=== PATIENT | female | born 1960 | race Caucasian/White ===

== ENCOUNTER → 2017-08-12 | Outpatient (CLI) | payer BC ==
[~2017-08-12] MED LIST: ACTOS 30 MG TAB30 MG PO; AMOXICILLI400 MG/5 M PO; ASPIR 8181 MG PO; COREG3.125 MG PO; CRESTOR10 MG PO; CRESTOR40 MG PO; EFFIENT10 MG PO; GLUCOPHAGE1000 MG PO; LANTUSSOLASTAR SQ; LEVEMIR SUBQ; LEVOTHYROXIN0.025 MG PO; LEVOTHYROXINE0.2 M1 PO; MOBIC15 MG PO; Magic Mouthwash PO; NAPROSYN500 MG PO; NITROSTAT0.4 MG SUBLING; NOVOLOG FL100 UNIT/M SC; PRILOSEC40 MG PO; PROMETHAZINE-C120 ML PO; PROTONIX40 M2 PO; ZESTRIL2.5 MG PO; ZOCOR80 MG PO
== END ==
LOC: M.ULTRA 15:04
DX: I65.23 Occlusion and stenosis of bilateral carotid arteries (principal)

== ENCOUNTER → 2017-10-03 | Outpatient (CLI) | payer BC | LOC: M.CT 07:31 | DX: R10.13 Epigastric pain (principal); R11.2 Nausea with vomiting, unspecified ==

== ENCOUNTER 2018-06-22 04:46 | Emergency (ER) | payer BC ==
[~2018-06-22] VITALS: Ht 170.2 cm; Wt 65.3 kg
[2018-06-22 05:04] LABS: ABSOLUTE BASOPHILS 0.1 thou/uL (0.0-0.2); ABSOLUTE EOSINOPHILS 0.2 thou/uL (0.0-0.7); ABSOLUTE LYMPHOCYTES 2.2 thou/uL (0.8-5.3); ABSOLUTE MONOCYTES 0.8 thou/uL (0.0-1.2); ABSOLUTE NEUTROPHILS 5.9 thou/uL (1.6-8.1); BASOPHILS 1.1 %; EOSINOPHILS 2.3 %; HEMATOCRIT 43.1 % (37.0-47.0); HEMOGLOBIN 14.5 gm/dL (12.0-15.0); LYMPHOCYTES 24.1 %; MCH 28.1 pg (26.0-34.0); MCHC 33.6 g/dL (28.0-37.0); MCV 83.6 fL (80.0-100.0); MONOCYTES 8.7 %; MPV 9.4 fl. (7.2-11.1); NUCLEATED RBCS 0 /100WBC; PLATELET COUNT* 272 thou/uL (150-400); POLYS 63.8 %; RBC 5.15 mil/uL (4.20-5.00); RDW-CV 13.1 % (10.5-14.5); WBC 9.2 thou/uL (4.0-11.0)
[2018-06-22 05:19] LABS: ANION GAP 9 mmol/L (7-16); BUN 10 mg/dL (7-18); CALCIUM 8.9 mg/dL (8.5-10.1); CHLORIDE 97 mmol/L (98-107); CO2 27 mmol/L (21-32); CREATININE 0.8 mg/dL (0.6-1.3); GLUCOSE 472 mg/dL (70-99); POTASSIUM 3.8 mmol/L (3.5-5.1); SODIUM 133 mmol/L (136-145)
[2018-06-22 05:23] LABS: APTT 27.8 Seconds (25.0-31.3); PROTIME 9.9 Seconds (9.20-11.50)
[2018-06-22 05:36] LABS: ALKALINE PHOSPHATASE 95 U/L (46-116); LIPASE 123 U/L (73-393); MAGNESIUM 1.8 mg/dL (1.8-2.4); SGOT 9 U/L (15-37); TOTAL BILIRUBIN 0.2 mg/dL (<0.1-1.0)
[2018-06-22 05:37] LABS: ALBUMIN 3.1 g/dL (3.4-5.0); SGPT 14 U/L (30-65); TOTAL PROTEIN 6.8 g/dL (6.4-8.2); TROPONIN-I LEVEL <0.06 ng/mL (<0.06)
[2018-06-22 05:38] LABS: CK-MB MASS 1.6 ng/mL (<0.5-3.6)
[2018-06-22 05:39] LABS: NT-PRO BRAIN NAT PEPTIDE 80 pg/mL (<300)
[2018-06-22 06:22] VITALS: BP 138/70
--- NOTE | 2018-06-22 14:27 | EKG ---
[place] [address] ELECTROCARDIOGRAM REPORT Name: HAL ALONSO Room: [facility]#: [id number] Admission: 06/22/18 Attend Phys: Discharge: 06/22/18 Date of : 60 Report #: [id number] THIS REPORT FOR: //name// [facility] ED Test Date: 2018-06-22 Test Time: 04:50:59 Pat Name: HAL ALONSO Department: Room: Gender: F Global Sales Executive: AUTUMN : 1960 Requested By: Joey Siegel Order Number: [id number] MD: Derrick Kim Measurements Intervals [place] Rate: 80 P: 77 [place]: 131 QRS: 72 QRSD: 103 T: 65 QT: 411 QTc: 475 Interpretive Statements Sinus rhythm Compared to ECG 08/18/2016 08:11:58 T-wave abnormality no longer present Possible ischemia no longer present Electronically Signed On 06-22-2018 14:27:00 HANDYPERSON by Derrick Kim [email or web address] <ELECTRONICALLY SIGNED> By: Derrick Kim MD, [facility] 06/22/18 1427 0450 9 Derrick Kim MD, FACC /EPI
== END 2018-06-22 06:24 | disposition home or self-care (01) ==
LOC: M.ERS 04:46
PROVIDERS: Family Medicine
DX: R07.89 Other chest pain (principal); K21.9 Gastro-esophageal reflux disease without esophagitis; E07.9 Disorder of thyroid, unspecified; F17.210 Nicotine dependence, cigarettes, uncomplicated; Z95.5 Presence of coronary angioplasty implant and graft; Z88.5 Allergy status to narcotic agent; Z88.8 Allergy status to other drugs, medicaments and biological substances; Z90.49 Acquired absence of other specified parts of digestive tract; Z90.710 Acquired absence of both cervix and uterus

== ENCOUNTER 2018-07-03 07:37 | Observation (INO) | payer BC ==
[~2018-07-03] VITALS: Ht 170.2 cm; Wt 64.4 kg
[2018-07-03] VITALS (16 sets, daily range): BP systolic 76–138; BP diastolic 42–85
--- NOTE | ~2018-07-03 | H ---
[address] [address] HISTORY AND PHYSICAL Name: HAL ALONSO Room: [address] Curt Donaldson#: [id number] Admission: 07/03/18 Attend Phys: Cassius Davis MD, Discharge: 07/04/18 Date of : 60 Report #: [id number] THIS REPORT FOR: //name// Please refer to the History and Physical performed in the physician's office. By: 0839Medical Records Staff GABY /GIOVANI
[2018-07-03 08:44] LABS: NUCLEATED RBCS 0 /100WBC; RDW-CV 13.4 % (10.5-14.5)
[2018-07-03 08:46] LABS: ABSOLUTE BASOPHILS 0.1 thou/uL (0.0-0.2); ABSOLUTE EOSINOPHILS 0.1 thou/uL (0.0-0.7); ABSOLUTE LYMPHOCYTES 2.2 thou/uL (0.8-5.3); ABSOLUTE MONOCYTES 0.7 thou/uL (0.0-1.2); ABSOLUTE NEUTROPHILS 4.6 thou/uL (1.6-8.1); BASOPHILS 1.5 %; EOSINOPHILS 1.6 %; HEMATOCRIT 45.4 % (37.0-47.0); HEMOGLOBIN 15.1 gm/dL (12.0-15.0); LYMPHOCYTES 28.8 %; MCH 27.9 pg (26.0-34.0); MCHC 33.1 g/dL (28.0-37.0); MCV 84.1 fL (80.0-100.0); MONOCYTES 8.7 %; PLATELET COUNT* 292 thou/uL (150-400); POLYS 59.4 %; RBC 5.41 mil/uL (4.20-5.00); WBC 7.8 thou/uL (4.0-11.0)
[2018-07-03] MEDS ORDERED: SYNTHROID200 MCG PO (08:47)
[2018-07-03 08:54] LABS: APTT 26.5 Seconds (25.0-31.3)
[2018-07-03 08:55] LABS: ANION GAP 8 mmol/L (7-16); BUN 13 mg/dL (7-18); CALCIUM 9.2 mg/dL (8.5-10.1); CHLORIDE 98 mmol/L (98-107); CO2 29 mmol/L (21-32); CREATININE 0.7 mg/dL (0.6-1.3); GLUCOSE 358 mg/dL (70-99); POTASSIUM 3.9 mmol/L (3.5-5.1); SODIUM 135 mmol/L (136-145)
[2018-07-03 09:05] LABS: ALBUMIN 3.3 g/dL (3.4-5.0); ALKALINE PHOSPHATASE 89 U/L (46-116); SGOT 18 U/L (15-37); SGPT 16 U/L (30-65); TOTAL BILIRUBIN 0.4 mg/dL (<0.1-1.0); TOTAL PROTEIN 7.3 g/dL (6.4-8.2)
[2018-07-03 10:25] LABS: CHOLESTEROL 233 mg/dL (<200); HDL CHOLESTEROL 50 mg/dL (>40); LDL CHOLESTEROL 142 mg/dL (<100); SERUM ASSESSMENT Clear; TC:HDL 4.7 Ratio (Not establshd); TRIGLYCERIDE 206 mg/dL (<150); VLDL 41 mg/dL (<40)
--- NOTE | 2018-07-03 17:47 | EKG ---
[place] [address] ELECTROCARDIOGRAM REPORT Name: JAZZMINE ALONSONA JEAN MARIE Room: [address] M.R.#: [id number] Admission: 07/03/18 Attend Phys: Cassius Davis MD, Discharge: Date of : 60 Report #: [id number] THIS REPORT FOR: //name// [facility] Test Date: 2018-07-03 Test Time: 08:03:18 Pat Name: HAL ALONSO Department: Room: [facility] Gender: F Photography Manager: : 1960 Requested By: Cassius Davis Order Number: [id number] Christianne MD: Tra Reed Measurements Intervals [place] Rate: 85 P: 88 [place]: 124 QRS: 79 QRSD: 99 T: 78 QT: 396 QTc: 471 Interpretive Statements Sinus rhythm Compared to ECG 06/22/2018 04:50:59 No significant changes Electronically Signed On 07-03-2018 17:47:42 KNOTTING MACHINE OPERATOR PORTABLE by Tra Reed [email or web address] <ELECTRONICALLY SIGNED> By: Tra Reed MD, [facility] 07/03/18 1747 2 2 Tra Reed MD, FAC /EPI
--- NOTE | 2018-07-03 17:50 | EKG ---
[place] [address] ELECTROCARDIOGRAM REPORT Name: HAL ALONSO Room: [address] M.R.#: [id number] Admission: 07/03/18 Attend Phys: Cassius Davis MD, Discharge: Date of : 60 Report #: [id number] THIS REPORT FOR: //name// [facility] Test Date: 2018-07-03 Test Time: 11:41:13 Pat Name: HAL ALONSO Department: Room: [facility] Gender: F Cone Winder: : 1960 Requested By: Cassius Davis Order Number: [id number] Christianne MD: Tra Reed Measurements Intervals [place] Rate: 78 P: 80 [place]: 126 QRS: 77 QRSD: 99 T: 75 QT: 411 QTc: 469 Interpretive Statements Sinus rhythm Compared to ECG 06/22/2018 04:50:59 No significant changes Electronically Signed On 07-03-2018 17:50:02 FOOD PROCESSOR by Tra Reed [email or web address] <ELECTRONICALLY SIGNED> By: Tra Reed MD, [facility] 07/03/18 1750 1141 114 Tra Reed MD, FACC /EPI
--- NOTE | 2018-07-03 18:00 | NUR ---
VSS, ASSUMED CARE IN THE AM, ASSESSMENT PERFORMED AND CHARTED, FALL PRECAUTIONS IN PLACE AND CALL LIGHT IN REACH, CATH SIT IN THE RIGHT GRION, IT IS C/D/I WITH NO HEMOTOMA, PT DENIES ANY PAIN AND IS TRACING SR ON THE MONITOR, HER GOAL IS TO HAVE NO GROIN ISSUES OR CATH SIT COMPLICATIONS, HOURLY ROUNDS COMPLETED AND WILL FOLLOW WITH PLAN OF CARE
--- NOTE | 2018-07-03 19:53 | NUR ---
RECEIVED REPORT AND ASSUMED CARE OF PT, ASSESSMENT COMPLETED. PT AMBULATED TO BR WITH SLOW BUT STEADY GAIT, STATES SHE HAS RT LEG NEUROPATHY. RT GROIN CATH SITE INTACT, NO HEMATOMA. TELEMETRY ON SHOWING SR. DENIES COMPLAINTS OF DISCOMFORT. WILL CONT TO MONITOR AND ASSIST NEEDED.
[2018-07-04] VITALS: BP 104/52
[2018-07-04 04:00] VITALS: BP 95/49
[2018-07-04 05:14] LABS: HEMATOCRIT 41.3 % (37.0-47.0); HEMOGLOBIN 13.7 gm/dL (12.0-15.0); MCH 27.9 pg (26.0-34.0); MCHC 33.2 g/dL (28.0-37.0); MPV 9.3 fl. (7.2-11.1); RBC 4.91 mil/uL (4.20-5.00); RDW-CV 13.7 % (10.5-14.5); WBC 8.2 thou/uL (4.0-11.0)
[2018-07-04 05:32] LABS: ALBUMIN 2.9 g/dL (3.4-5.0); CALCIUM 8.7 mg/dL (8.5-10.1); CREATININE 0.6 mg/dL (0.6-1.3); TOTAL BILIRUBIN 0.5 mg/dL (<0.1-1.0); TOTAL PROTEIN 6.3 g/dL (6.4-8.2); TROPONIN-I LEVEL 0.07 ng/mL (<0.06)
[2018-07-04 07:00] VITALS: BP 132/67
--- NOTE | 2018-07-04 07:00 | NUR ---
AWAKE FREQ DURING NIGHT. C/O BEING CONSTIPATED, HS COLACE GIVEN AND PRUNE JUICE GIVEN DURING NIGHT. EXPAINED NOT BEARING DOWN OR STRAINING OF ANY TYPE DUE TO RT GROIN CATH SITE. SITE REMAINS DRY AND INTACT, NO HEMATOMA. TELEMETRY CONT TO SHOW SR TO SB. DENIES CP OR OTHER DISCOMFORTS. HS GOALS OF REST AND SAFETY PARTICALLY ACHIEVED. HOURLY ROUNDING OBSERVED.
[2018-07-04] MEDS ORDERED: CRESTOR10 MG PO (10:01)
[2018-07-04] MEDS ORDERED: EFFIENT10 MG PO (10:05)
[2018-07-04 10:43] VITALS: BP 76/44
[2018-07-04 11:10] VITALS: BP 76/44
--- NOTE | 2018-07-04 11:41 | NUR ---
VSS, ASSUMED CARE IN THE AM, ASSESSMENT PERFORMED AND CHARTED, FALL PRECAUTIONS IN [LACE AND CALL LIGHT IN REACH, PT IS A&O4 ON RA, UP AD SANGITA, DENIES ANY PAIN AND CATH SITE IN THE RIGHT GROIN IS C/D/I NO HEMOETOMA, PT IS GOAL IS TO D/C TO HOME AND Have A BM, HOURLY ROUNDS COMPLETED, AT THIS TIME PT HAS BEEN D/S I FILLED OUT D/C ORDERS, PROVITED SCRIPTS AND D/C INSTRUCTIONS PT DENIES ANY QUESTIONS OR CONCERNS AT TIME OF D/C, IV AND TELE MONITOR TAKEN OFF, AND PT WALKED OUT BY STAFF VIA WHEEL CHAIR,
--- NOTE | 2018-07-04 11:50 | D ---
[address] [address] DISCHARGE SUMMARY Name: JAZZMINE ALONSONA JEAN MARIE Room: [address] M.R.#: [id number] Admission: 07/03/18 Attend Phys: Cassius Davis MD, Discharge: Date of : 60 Report #: [id number] THIS REPORT FOR: //name// CC: Cassius Connell DATE OF SERVICE: 07/04/2018 The patient discharged from [facility]. FINAL DISCHARGE DIAGNOSES: 1. Unstable angina. 2. Coronary artery disease. 3. Status post remote percutaneous coronary intervention to the LAD and more recent percutaneous coronary intervention to the circumflex on 05/03/2018. 4. Hypertension. 5. Type 2 diabetes. 6. Hyperlipoproteinemia. PROCEDURES: On 07/03/2018 -- left heart catheterization, left ventriculography, selective coronary arteriography and percutaneous coronary intervention at the site of 80% mid circumflex stenosis. The patient is a 57-year-old female with coronary artery disease and multiple risk factors for same including hypertension, type 2 diabetes and hyperlipidemia. In the context of recurrent and unstable angina, I performed cardiac catheterization on 07/03/2018, which revealed a widely patent mid LAD stent with 80% tubular mid circumflex narrowing. I deployed one 2.75 x 23 mm Xience Yokasta stent in the circumflex post-dilating it to 3.0 mm with 0% residual narrowing and BIANCA 3 flow of the distal vessel. The patient did well post-procedurally and there was good hemostasis at the right femoral site of catheterization. Laboratory data on 07/04 revealed sodium 137, potassium 4.0, BUN 14, creatinine 0.6, glucose 245 mg%. Hemoglobin 13.7, white blood cell count 8200 with 239,000 platelets. Troponin 0.07. The patient ambulated in the hallways without difficulty. She was discharged to home in stable condition on the following medications: Aspirin 81 mg daily, NovoLog insulin 100 units subcutaneously with meals, Synthroid 250 mcg daily, lisinopril 2.5 mg daily, metformin 1000 mg b.i.d. to be resumed on 07/06/2018, Actos 30 mg daily, prasugrel or Effient 10 [place] [address] DISCHARGE SUMMARY Name: HAL ALONSO Room: [address] Curt Donaldson#: [id number] Admission: 07/03/18 Attend Phys: Cassius Davis MD, Discharge: Date of : 60 Report #: [id number] a 60 mg loading dose given periprocedurally and Crestor 40 mg daily. The patient is scheduled to return to see me in 6 weeks for followup. She is to call if there are interim difficulties. Thus, the patient is discharged to home in stable condition on the aforementioned medications with followup as iterated above. <ELECTRONICALLY SIGNED> By: Cassius Davis MD, [facility] 07/04/18 1150 0916 1139John Marcelino Davis MD, ISRA /nt
--- NOTE | 2018-07-06 15:31 | EKG ---
[place] [address] ELECTROCARDIOGRAM REPORT Name: HAL ALONSO Room: [address] M.R.#: [id number] Admission: 07/03/18 Attend Phys: Cassius Davis MD, Discharge: 07/04/18 Date of : 60 Report #: [id number] THIS REPORT FOR: //name// [facility] Test Date: 2018-07-04 Test Time: 08:16:43 Pat Name: HAL ALONSO Department: Room: [facility] Gender: F Manager Clinical: : 1960 Requested By: Cassius Davis Order Number: [id number] Reading MD: Tra Reed Measurements Intervals [place] Rate: 83 P: 74 [place]: 136 QRS: 72 QRSD: 101 T: 66 QT: 401 QTc: 472 Interpretive Statements Sinus rhythm Compared to ECG 07/03/2018 11:41:13 No significant changes Electronically Signed On 07-06-2018 15:30:43 OPHTHALMIC MEDICAL TECHNOLOGIST by Tra Reed [email or web address] <ELECTRONICALLY SIGNED> By: Tra Reed MD, [facility] 07/06/18 1530 5 5 Tra Reed MD, [facility] /EPI
--- NOTE | 2018-07-07 14:03 | CARD ---
[address] [address] CARDIAC CATH REPORT Name: HAL ALONSO Room: [address] Curt Donaldson#: [id number] Admission: 07/03/18 Attend Phys: Cassius Davis MD, Discharge: 07/04/18 Date of : 60 Report #: [id number] THIS REPORT FOR: //name// APPROVED REPORT Study performed: 07/03/2018 08:58:41 Patient Details Patient Status: Out-Patient Room #: The patient is a 57 year-old female Event Personnel Cleopatra Daniels RN Prime BrokerSusan gagnon John Cooker Process Cheese, Max Jordan (R) Davonte Steiner Diane Monitor Procedures Performed Art Access - R femoral artery* , Selective Right and Left Coronary AngiographyLeft Heart Cath w/or w/o Coronaries [id number] [facility] , Left VentriculogramDES Place w/wo Plasty Single CIRC [id number] Indication Unstable angina Risk Factors Hypercholesterolemia, Hypertension Previous Procedures/Diagnoses Previous PCI Admission/Lab Medications/Medications given during procedure Aspirin, Platelet Aff. Inhib. Procedure Narrative The patient was brought electively to the Cardiac Catheterization Laboratory and was prepped and draped in a sterile manner. The right femoral was infiltrated with 2% Lidocaine subcutaneous anesthesia. A Isabella 6 FR sheath was inserted into the right femoral artery. Coronary angiography was performed using coronary diagnostic catheters. The right coronary system was accessed and visualized with a 3DRC 6fr catheter. The left coronary system was accessed and visualized with a Jl 4 6fr catheter. The left ventricle was accessed and visualized with a 6fr Pigtail catheter. Left ventriculogram was performed in BARLOW projection. Pre-demployment femoral angiogram was performed . Closure device was deployed with a 6 [place] [address] CARDIAC CATH REPORT Name: HAL ALONSO Room: [address] Mendoza#: [id number] Admission: 07/03/18 Attend Phys: Cassius Davis MD, Discharge: 07/04/18 Date of : 60 Report #: [id number]. The patient tolerated the procedure well and there were no complications associated with the procedure. There was no hematoma. Intraoperative Conscious Sedation Sedation start time: 09:33 Case end Time: 10:25 Fentanyl 25 mcg Versed 2 mg Fluoro Time: 11.5 minutes Dose: DAP 73554 cGycm2 1103.88 mGy Contrast Type and Amount: Visipaque 400 ml Diagnostic Cath Left Main 0 % narrowing LAD widely patent mid LAD stent; 0 % narrowing Circumflex 80 % mid Cx stenosis Right Coronary small but dominant vessel with 0 % narrowing Left Ventriculography The left ventricle is normal in size with normal contractility. The left ventricular ejection fraction is estimated to be 60%. Left ventricular wall motion abnormalities are not present. There is no mitral insufficiency. Hemodynamics The aortic pressure is 105/56 mmHg with a mean of mmHg. The left ventricular pressure is 94/-2 mmHg with a mean of mmHg. The left ventricular end diastolic pressure is 1 mmHg. There was no gradient across the aortic valve upon pullback. PCI Technique Lesion Percutaneous coronary intervention was performed on the mid circumflex artery segment. The lesion stenosis prior to intervention was 80% with BIANCA 3 flow. A 6FR XB 3.0 100CM Guide Catheter was used to engage the LCA ostium. A IG: BMW 190cm Interventional Guidewire was used to cross the lesion. BALLOON DILATION A Balloon catheter Trek RX 2.5 X 12 was inserted and inflated up to 12.00atm for 9seconds. Additional Inflation: 12.00atm for 10seconds. STENT DEPLOYMENT A drug-eluting stent Xience Yokasta 2.73W53tt was inserted and inflated up to 17.00atm for 11seconds. Additional Inflation: 19.00[place]m [place] [address] CARDIAC CATH REPORT Name: HAL ALONSO Room: [address] M.R.#: [id number] Admission: 07/03/18 Attend Phys: Cassius Davis MD, Discharge: 07/04/18 Date of : 60 Report #: [id number] for 12seconds. Additional Inflation: 20.00atm for 10seconds. POST STENT DEPLOYMENT BALLOON DILATION A Balloon catheter NC Trek RX 3.0 X 12 was inserted and inflated up to 16.00atm for 8seconds. Additional Inflation: 16.00atm for 9seconds. Final angiography reveals 0 % stenosis with BIANCA 3 flow. Conclusion 1 cad characterized by a) 0 % lmca, and rca narrowing b) 80 % tubular mid Cx stenosis c) widely patent mid LAD stent 2 nl lv fn, EF 60% 3 nl left sided hemodynamic study 4 successful PCI with deployment of a DIANE in the mid Cx with 0% residual stenosis Recommendations Cardiac Risk Reduction Program Aggressive Medical Therapy Medications Administered Aspirin (any) Prasugrel Diagnostic Cath Approved by: Cassius Davis MD Date/Time: 07/07/2018 14:02:53 <ELECTRONICALLY SIGNED> By: Cassius Davis MD, [facility] 07/07/18 1403 1403 1403Cassius Davis MD, FAC /INF
== END 2018-07-04 12:20 | disposition home or self-care (01) ==
LOC: M.CL 07:37 → M.TBA-CV 10:45 → M.2W 10:45
PROVIDERS: ADMIT Internal Medicine
DX: I25.110 Atherosclerotic heart disease of native coronary artery with unstable angina pectoris (principal); I25.2 Old myocardial infarction; I10 Essential (primary) hypertension; E78.2 Mixed hyperlipidemia; E11.9 Type 2 diabetes mellitus without complications; E03.9 Hypothyroidism, unspecified; K21.9 Gastro-esophageal reflux disease without esophagitis; F17.200 Nicotine dependence, unspecified, uncomplicated; Z79.4 Long term (current) use of insulin; Z79.82 Long term (current) use of aspirin; Z79.899 Other long term (current) drug therapy; Z95.5 Presence of coronary angioplasty implant and graft; Z90.710 Acquired absence of both cervix and uterus; Z98.890 Other specified postprocedural states

== ENCOUNTER → 2019-01-28 | Outpatient (CLI) | payer BC ==
[~2019-01-28] MED LIST changes: +SYNTHROID200 MCG PO
== END ==
LOC: M.RAD 10:28
DX: Z12.31 Encounter for screening mammogram for malignant neoplasm of breast (principal)

== ENCOUNTER → 2021-04-25 | Outpatient (CLI) | payer MEDICARE ==
--- NOTE | 2021-04-25 11:40 | 2DMMODE ---
[place] [address] 2 D/M-MODE ECHOCARDIOGRAM Name: HAL ALONSO Room: [facility]#: [id number] Admission: 04/25/21 Attend Phys: Maria Eugenia Shaikh, Discharge: Date of : 60 Date of Service: 04/25/21 1140 Report #: [id number] THIS REPORT FOR: cc: Maria Eugenia Shaikh,Tra Whitney MD [facility] ~ APPROVED REPORT Study performed: 04/25/2021 08:30:18 EXAM: Comprehensive 2D, Doppler, and color-flow Echocardiogram Patient Location: Out-Patient BSA: 1.75 HR: 84 bpm BP: 120/70 mmHg Other Information Study Quality: Good Indications CAD 2D Dimensions IVSd: 8.40 (7-11mm) LVOT Diam: 20.95 (18-24mm) LVDd: 43.65 mm PWd: 7.50 (7-11mm) Ascending Ao: 25.68 (22-36mm) LVDs: 33.90 (25-40mm) Aortic Root: 28.78 mm Volumes Left Atrial Volume (Systole) LA ESV Index: 16.90 mL/m2 Aortic Valve AoV Peak Fredy.: 1.41 m/s AO Peak Gr.: 7.97 mmHg LVOT Max P.31 mmHg AO Mean Gr.: 3.97 mmHg LVOT Mean P.37 mmHg LVOT Max V: 0.91 m/s AO V2 VTI: 25.32 cm LVOT Mean V: 0.52 m/s JULES (VTI): 2.71 cm2 LVOT V1 VTI: 19.88 cm Mitral Valve E/A Ratio: 0.72 [place] [address] 2 D/M-MODE ECHOCARDIOGRAM Name: HAL ALONSO Room: [facility]#: [id number] Admission: 04/25/21 Attend Phys: Maria Eugenia Shaikh, Discharge: Date of : 60 Date of Service: 04/25/21 1140 Report #: [id number] MV Decel. Time: 229.99 ms MV E Max Fredy.: 0.65 m/s MV PHT: 66.70 ms MVA (PHT): 3.30 cm2 TDI E/Lateral E': 5.00 E/Medial E': 7.22 Medial E' Fredy.: 0.09 m/s Lateral E' Fredy.: 0.13 m/s Pulmonary Valve PV Peak Fredy.: 0.94 m/s PV Peak Gr.: 3.50 mmHg Left Ventricle The left ventricle is normal size. There is normal LV segmental wall motion. There is normal left ventricular wall thickness. Left ventricular systolic function is normal. LVEF is 55-60%. Grade I - abnormal relaxation pattern. Right Ventricle The right ventricle is normal size. The right ventricular systolic function is normal. Atria The left atrium size is normal. The right atrium size is normal. Aortic Valve The aortic valve is normal in structure. No aortic regurgitation is present. There is no aortic valvular stenosis. Mitral Valve The mitral valve is normal in structure. There is no mitral valve regurgitation noted. No evidence of mitral valve stenosis. Tricuspid Valve The tricuspid valve is normal in structure. There is no tricuspid valve regurgitation noted. Pulmonic Valve The pulmonary valve is normal in structure. There is no pulmonic valvular regurgitation. Great Vessels The aortic root is normal in size. IVC is normal in size and collapses >50% [place] [address] 2 D/M-MODE ECHOCARDIOGRAM Name: HAL ALONSO Room: [facility]#: [id number] Admission: 04/25/21 Attend Phys: Maria Eugenia Shaikh, Discharge: Date of : 60 Date of Service: 04/25/21 1140 Report #: [id number] Pericardium There is no pericardial effusion. <Conclusion> The left ventricle is normal size. There is normal left ventricular wall thickness. Left ventricular systolic function is normal. LVEF is 55-60%. Grade I - abnormal relaxation pattern. IVC is normal in size and collapses >50% with inspiration. <ELECTRONICALLY SIGNED> By: Tra Reed MD, FACC 04/25/21 1140 1140 1140 Tra Reed MD, FACC /INF
== END ==
LOC: M.CRD 04-18 11:37
PROVIDERS: ATTEND Family Medicine
DX: I51.7 Cardiomegaly (principal); I82.432 Acute embolism and thrombosis of left popliteal vein; R06.01 Orthopnea; I89.0 Lymphedema, not elsewhere classified

== ENCOUNTER 2021-05-23 11:38 | Emergency (ER) | payer MEDICARE ==
[~2021-05-23] VITALS: Ht 170.2 cm; Wt 64.4 kg
[2021-05-23] MEDS ORDERED: JANTOVEN6 MG PO (11:49)
[2021-05-23 12:24] LABS: ABSOLUTE BASOPHILS 0.1 thou/uL (0.0-0.2); ABSOLUTE EOSINOPHILS 0.2 thou/uL (0.0-0.7); ABSOLUTE MONOCYTES 0.9 thou/uL (0.0-1.2); ABSOLUTE NEUTROPHILS 4.9 thou/uL (1.6-8.1); BASOPHILS 0.8 %; EOSINOPHILS 2.8 %; HEMATOCRIT 40.4 % (37.0-47.0); HEMOGLOBIN 13.6 gm/dL (12.0-15.0); LYMPHOCYTES 25.3 %; MCH 27.5 pg (26.0-34.0); MCHC 33.8 g/dL (28.0-37.0); MCV 81.5 fL (80.0-100.0); MONOCYTES 10.9 %; MPV 8.7 fl. (7.2-11.1); NUCLEATED RBCS 0 /100WBC; PLATELET COUNT* 333 thou/uL (150-400); POLYS 60.2 %; RBC 4.95 mil/uL (4.20-5.00); RDW-CV 13.8 % (10.5-14.5); WBC 8.1 thou/uL (4.0-11.0)
[2021-05-23 12:26] LABS: CALCIUM 9.1 mg/dL (8.5-10.1); CREATININE 0.8 mg/dL (0.6-1.3)
[2021-05-23 12:31] LABS: APTT 34.2 Seconds (25.0-31.3); INR 1.5; PROTIME 15.7 Seconds (9.20-11.50)
[2021-05-23] MEDS ORDERED: XARELTO15 MG PO (13:40)
[2021-05-23] MEDS ORDERED: XARELTO20 MG PO (13:40)
[2021-05-23 14:19] VITALS: BP 134/47
== END 2021-05-23 14:20 | disposition home or self-care (01) ==
LOC: M.ERS 11:38
PROVIDERS: Nurse Practitioner Family
DX: I82.412 Acute embolism and thrombosis of left femoral vein (principal); L89.152 Pressure ulcer of sacral region, stage 2; E11.622 Type 2 diabetes mellitus with other skin ulcer; K21.9 Gastro-esophageal reflux disease without esophagitis; F17.210 Nicotine dependence, cigarettes, uncomplicated; Z90.710 Acquired absence of both cervix and uterus; Z98.51 Tubal ligation status; Z90.49 Acquired absence of other specified parts of digestive tract; Z79.82 Long term (current) use of aspirin; Z79.4 Long term (current) use of insulin; Z79.899 Other long term (current) drug therapy; Z88.5 Allergy status to narcotic agent

== ENCOUNTER 2021-05-27 05:28 | Inpatient (IN) | payer MEDICARE ==
[~2021-05-27] VITALS: Ht 170.2 cm; Wt 59.2 kg
[2021-05-27] VITALS (7 sets, daily range): BP systolic 83–130; BP diastolic 28–58
[~2021-05-27 05:28] MED LIST changes: +JANTOVEN6 MG PO; +XARELTO15 MG PO; +XARELTO20 MG PO
[2021-05-27 06:13] LABS: ABSOLUTE NEUTROPHILS 5.2 thou/uL (1.6-8.1); MPV 8.8 fl. (7.2-11.1); POLYS 60.9 %
[2021-05-27 06:17] LABS: ABSOLUTE BASOPHILS 0.1 thou/uL (0.0-0.2); ABSOLUTE EOSINOPHILS 0.2 thou/uL (0.0-0.7); ABSOLUTE LYMPHOCYTES 2.1 thou/uL (0.8-5.3); ABSOLUTE MONOCYTES 0.9 thou/uL (0.0-1.2); BASOPHILS 0.9 %; EOSINOPHILS 2.7 %; HEMATOCRIT 39.3 % (37.0-47.0); LYMPHOCYTES 25.3 %; MCH 27.2 pg (26.0-34.0); MCV 82.4 fL (80.0-100.0); MONOCYTES 10.2 %; NUCLEATED RBCS 0 /100WBC; PLATELET COUNT* 325 thou/uL (150-400); RBC 4.77 mil/uL (4.20-5.00); RDW-CV 13.8 % (10.5-14.5); WBC 8.5 thou/uL (4.0-11.0)
[2021-05-27 06:19] LABS: APTT 35.4 Seconds (25.0-31.3); INR 1.2; PROTIME 12.9 Seconds (9.20-11.50)
[2021-05-27 06:20] LABS: CREATININE 0.8 mg/dL (0.6-1.3); POTASSIUM 3.9 mmol/L (3.5-5.1)
[2021-05-27 06:32] LABS: ALBUMIN 2.7 g/dL (3.4-5.0); TOTAL BILIRUBIN 0.3 mg/dL (<0.1-1.0); TOTAL PROTEIN 6.8 g/dL (6.4-8.2)
[2021-05-27] MEDS ORDERED: NEURONTIN100 MG PO (06:39)
[2021-05-27] MEDS ORDERED: GLIPIZIDE 10 MG10 MG PO (06:39)
[2021-05-27] MEDS ORDERED: HUMALOG100 UNIT/1 SUBQ (06:40)
[2021-05-27 06:41] LABS: URINE BILIRUBIN NEGATIVE (Negative); URINE BLOOD TRACE (Negative); URINE CLARITY CLEAR; URINE COLOR YELLOW; URINE GLUCOSE-RANDOM 3+ (Negative); URINE KETONES NEGATIVE (Negative); URINE LEUKOCYTES-REFLEX NEGATIVE (Negative); URINE NITRITE-REFLEX NEGATIVE (Negative); URINE PROTEIN NEGATIVE (Negative); URINE SPECIFIC GRAVITY <= 1.005 (1.005-1.030); URINE UROBILINOGEN 0.2 E.U./dl (0.2-1.0)
[2021-05-27 10:55] LABS: CHOLESTEROL 245 mg/dL (<200); HDL CHOLESTEROL 40 mg/dL (>40); LDL CHOLESTEROL 129 mg/dL (<100); SERUM ASSESSMENT Clear; TC:HDL 6.1 Ratio (Not establshd); TRIGLYCERIDE 382 mg/dL (<150); VLDL 76 mg/dL (<40)
--- NOTE | 2021-05-27 11:33 | EKG ---
[place] [address] ELECTROCARDIOGRAM REPORT Name: HAL ALONSO Room: [place] [address] ADM IN .R.#: [id number] Admission: 05/27/21 Attend Phys: Darvin Cochran, Discharge: Date of : 60 Date of Service: 05/27/21 0532 Report #: [id number] THIS REPORT FOR: //name// [facility] ED Test Date: 2021-05-27 Test Time: 05:32:56 Pat Name: HAL ALONSO Department: Room: [facility] Gender: F Geophysical Laboratory Chief: AUREA : 1960 Requested By: Alethea Hein Order Number: [id number] MD: Will Adams Measurements Intervals [place] Rate: 83 P: 70 [place]: 169 QRS: 57 QRSD: 135 T: 41 QT: 410 QTc: 482 Interpretive Statements Sinus rhythm Nonspecific intraventricular conduction delay Compared to ECG 07/04/2018 08:16:43 Intraventricular conduction delay now present Electronically Signed On 05-27-2021 11:32:55 CDT by Will Adams [email or web address] <ELECTRONICALLY SIGNED> By: Luna Adams MD, [facility] 05/27/21 1132 0532 Luna Adams MD, [facility] /EPI
[2021-05-28 03:18] VITALS: BP 116/64
[2021-05-28 04:04] LABS: ALBUMIN 2.2 g/dL (3.4-5.0); CALCIUM 8.4 mg/dL (8.5-10.1); CREATININE 0.6 mg/dL (0.6-1.3); MAGNESIUM 1.6 mg/dL (1.8-2.4); POTASSIUM 3.8 mmol/L (3.5-5.1); TOTAL BILIRUBIN 0.2 mg/dL (<0.1-1.0); TOTAL PROTEIN 5.7 g/dL (6.4-8.2)
[2021-05-28 04:07] LABS: HEMATOCRIT 36.7 % (37.0-47.0); HEMOGLOBIN 12.2 gm/dL (12.0-15.0); MCH 27.2 pg (26.0-34.0); MCHC 33.3 g/dL (28.0-37.0); MCV 81.6 fL (80.0-100.0); MPV 8.8 fl. (7.2-11.1); RBC 4.5 mil/uL (4.20-5.00); RDW-CV 13.9 % (10.5-14.5); WBC 10.9 thou/uL (4.0-11.0)
--- NOTE | 2021-05-28 08:23 | CON ---
[address] [address] CONSULTATION Name: HAL ALONSO Room: [address] [place] M.R.#: [id number] Admission: 05/27/21 Attend Phys: Darvin Cocharn MD Discharge: Date of : 60 Report #: [id number] THIS REPORT FOR: cc: Maria Eugenia Shaikh Jolie Rae DO Biggs, F. Douglas MD [facility] ~ DATE OF CONSULTATION: 05/27/2021 CARDIOLOGY CONSULTATION HISTORY OF PRESENT ILLNESS: I was asked by the Emergency Room physician and the hospitalist physician on-call today to see this 60-year-old white female in Cardiology consultation for evaluation and treatment of chest pain. This lady does have a history of coronary artery disease. She had a myocardial infarction involving the anterior wall of her heart in 2017. She had a stent in her LAD at that time. She also had unstable angina apparently in 2018 and got a stent in her right coronary artery. Her chest pain she says is like her prior myocardial infarction. She got up this morning to go to the bathroom, walked to the bathroom and fell. The chest pain started after the fall. She got 2 nitroglycerins and aspirin 324 mg en route to the hospital from EMS and her chest pain abated. She describes the chest pain as knife-like and sharp. It was substernal involving the upper substernal area. It was like her chest pain in 2017. It lasted about 30 minutes all told. It was 8 on a scale of 10. There was no radiation of the pain. The only associated symptom was clamminess. She did not have nausea, vomiting, hakan sweating or shortness of breath. She did have a DVT discovered in her left leg on 04/26. She was put on Coumadin or warfarin, but she was subtherapeutic when she showed up in the Emergency Room on 05/23 and she was switched to Xarelto 15 mg b.i.d. She is being loaded with that and then she will switch to 20 mg daily. She has not had any further chest pain. Her EKG shows normal sinus rhythm with minimal nonspecific ST depression in the inferior leads. I believe I have seen 4 different EKGs now. All of them looked very similar. Initial troponin was 9 at 5:22 and a subsequent one done at 8:25 was also 9. This is high sensitivity troponin. The equivalent on the regular troponin would be 0.009. PAST MEDICAL HISTORY: Remarkable for coronary artery disease as described above. Additionally, she has insulin-dependent diabetes mellitus. We noticed that she was out of control when she came in. I believe her blood sugar was greater than 500. That is being addressed by the hospitalist. Additionally, she has hypothyroidism and a past history of a DVT. Her past medical history also includes D and C in 2006, cholecystectomy, tubal ligation, history of hyperparathyroidism. She has GERD. She has had a hysterectomy. HOME MEDICATIONS: Include the Xarelto previously mentioned. Additionally, she is on levothyroxine 200 mcg daily for hypothyroidism. She is on metformin [address] [place] [address] CONSULTATION Name: HAL ALONSO Room: [address] [place] ..#: [id number] Admission: 05/27/21 Attend Phys: Darvin Cochran MD Discharge: Date of : 60 Report #: [id number] b.i.d., aspirin 81 mg daily, Crestor 40 mg daily, p.r.n. nitroglycerin, insulin aspartame 100 units daily with meals, glipizide 10 mg b.i.d., gabapentin 100 mg t.i.d., lispro insulin in the sliding scale and Actos 30 mg daily. ALLERGIES: SHE IS ALLERGIC TO DEMEROL AND PROPOXYPHENE. SOCIAL HISTORY: She smoked. She was told no uncertain terms to stop smoking today. She smokes a half pack a day. She denies alcohol or recreational drugs. FAMILY HISTORY: Unremarkable. REVIEW OF SYSTEMS: Essentially as per the history of present illness, otherwise is negative for some 45 different complaints in 14 different system categories. Please see our review of system form for details and negatives in review of system. PHYSICAL EXAMINATION:. GENERAL: She presents as a well-developed, well-nourished white female in no acute distress. VITAL SIGNS: Pulse was 80 and regular, blood pressure was 130/50, respirations were 14 and regular, O2 sat was 100% on 2 liters. HEENT: Her head was atraumatic. Eyes: Clear. NECK: Supple. There is no jugular venous distention or hepatojugular reflux. Thyroid is not enlarged. There is no adenopathy. SKIN: Warm and dry. Mucous membranes are moist. LUNGS: Clear to auscultation and percussion. HEART: Revealed normal first and second heart sounds. There is soft S4. There is no S3. There are no murmurs, rubs, thrills, heaves or gallops. PMI is nondisplaced. ABDOMEN: Soft, flat, nontender. No palpable masses. No organomegaly. There was no tenderness of the chest. EXTREMITIES: Reveal no cyanosis or clubbing. There was tenderness in the thigh anteriorly and in the calf posteriorly. There was edema of the ankle. Right leg was unremarkable. IMPRESSION: 1. Coronary artery disease. 2. Status post myocardial infarction. 3. Status post 2 coronary stents. 4. Chest pain, suspicious for ischemia. 5. Insulin-dependent diabetes mellitus. 6. Hypothyroidism. 7. [place] [address] CONSULTATION Name: GAVINHAL Room: [address]#: [id number] Admission: 05/27/21 Attend Phys: Darvin Cochran MD Discharge: Date of : 60 Report #: [id number] IMAGING DATA: Note, she did have a chest x-ray that was unremarkable and a pulmonary CTA that was negative. RECOMMENDATIONS: Recommend should be ruled out for an IA further with another EKG and more troponins. She should get a nuclear stress test and an echo on Saturday. Her blood sugar needs to be aggressively treated. Thank you very much for asking me to see the patient. If there are any questions, please feel free to contact me. <ELECTRONICALLY SIGNED> By: Luna Adams MD, [facility] 05/28/21 0823 1021F. Will Adams MD, FACC /nt
[2021-05-28 12:00] VITALS: BP 101/52
[2021-05-28 16:00] VITALS: BP 101/50
[2021-05-28 20:00] VITALS: BP 104/51
[2021-05-28 23:51] VITALS: BP 105/33
[2021-05-29 03:20] VITALS: BP 110/51
[2021-05-29 08:00] VITALS: BP 122/60
[2021-05-29 12:00] VITALS: BP 99/48
[2021-05-29 16:00] VITALS: BP 101/52
--- NOTE | 2021-05-29 17:56 | CARDNUC ---
[place] [address] CARDIAC NUCLEAR IMAGING REPORT Name: HAL ALONSO Room: [address] IN [facility]#: [id number] Admission: 05/27/21 Attend Phys: Darvin Cochran, Discharge: Date of : 60 Date of Service: 05/29/21 1756 Report #: [id number] THIS REPORT FOR: cc: Maria Eugenia Shaikh,Maria Eugenia Perales,Tra Hurd MD [facility] ~ APPROVED REPORT Imaging Protocol: Rest Tc-99m/Stress Tc-99m 1 day Study performed: 05/29/2021 09:45:00 Indication: CAD , Chest pain Patient Location: In-Patient Room #: 222 Stress Tech: Olimpia Marin Stress Nurse: Allyson Arciniega RN NM Tech:KIT Lozano Ht: 5 ft 7 in Wt: 142 lbs BSA: 1.75 m2 HR: 77 bpm BP: 162/60 mmHg BMI: 22.23 Rhythm: NSR Medical History Medical History: CAD s/p stent, ND, Hyperlipidemia, HTN, Diabetes, PVD, Smoking Medications: Riveroxaban, Atorvastatin, ASA, NTG Allergies: Propoxyphene, Meperidine Cardiac Risk Factors: Age, Current Smoker, DM, HTN, Hyperlipidemia, PVD Previous Cardiac Procedures: PCI Pretest Chest Pain Characteristics: None Physical Disabilities: Legs Meds Held (24 hrs): Nitroglycerin Resting Data Rest SPECT myocardial perfusion imaging was performed in supine position 30 minutes following the intravenous injection of 11.8 mCi of Tc-99m Sestamibi. Time of rest injection: 1135 Date: 05/29/2021 The images were gated to evaluate regional wall motion and calculate left ventricular ejection fraction. Administration Route: IV Administration Site: [place] [address] CARDIAC NUCLEAR IMAGING REPORT Name: HAL ALONSO Room: [address] IN [facility]#: [id number] Admission: 05/27/21 Attend Phys: Darvin Cochran, Discharge: Date of : 60 Date of Service: 05/29/21 1756 Report #: [id number] Pharmacologic Stress Pharmacologic stress test was performed by injecting Regadenoson 0.4 mg IV push over 10-15 seconds immediately followed by the intravenous injection of 35.7 mCi of Tc-99m Sestamibi. Time of stress injection: 1330 Date: 05/29/2021 Administration Route: IV Administration Site: Left Gated Stress SPECT was performed 40 minutes after stress injection. The images were gated to evaluate regional wall motion and calculate left ventricular ejection fraction. Stress only was performed in the Supine position. Stress Test Details Stress Test: Pharmacologic stress testing performed using 0.4 mg of regadenoson per 5 mL given IV over 10 seconds. 60 mg caffeine given for Intolerance to cola/coffee. HR Max Heart Rate (APMHR): 160 bpm Resting HR: 77 bpm Target HR (85% APMHR): 136 bpm Max HR Achieved: 91 bpm % of APMHR: 56 Recovery HR: 85 bpm BP Resting BP: 162/60 mmHg Max BP: 71/41 mmHg Recovery BP: 87/46 mmHg ECG Resting ECG: Sinus Rhythm Stress ECG: Sinus Rhythm ST Change: None Arrhythmia: None Recovery ECG: Sinus Rhythm Recovery ST Change: None Recovery Arrhythmia: None Clinical Reason for Termination: Completed protocol Stress Symptoms: None The patient tolerated Lexiscan infusion without significant cardiac symptoms. Nurse Comments Pt refrained from caffeine >24hr prior to [place] [address] CARDIAC NUCLEAR IMAGING REPORT Name: HAL ALONSO Room: [address]#: [id number] Admission: 05/27/21 Attend Phys: Darvin Cochran, Discharge: Date of : 60 Date of Service: 05/29/21 1756 Report #: [id number] s/s during test. Stress ECG Conclusion The baseline twelve-lead EKG shows sinus rhythm without significant ST segment or T wave abnormality. EKGs obtained during and post Lexiscan infusion show sinus rhythm with no significant ST segment or T wave changes when compared to baseline. There were no stress-induced arrhythmias. Study Quality Study: Good Artifact: Mild Diaphragmatic artifact Study Data At rest, the left ventricular ejection fraction was 69%.. Post stress, the left ventricular ejection was 50%.. TID = 1.36. Perfusion Perfusion images show a large in size severe intensity inferolateral defect with a moderate region of michelle-infarct ischemia. No other defects identified. Wall Motion Significant akinesis of the basal to mid inferolateral wall. Nuclear Conclusion ECG Findings: negative for ischemia Clinical Findings: negative for ischemia Nuclear Findings: positive for ischemia Exercise Capacity: not assessed Left Ventricular Function: abnormal Risk Study: high Perfusion images suggest previous inferolateral infarct with a moderate region of michelle-infarct ischemia. Global LV systolic function is mildly decreased post-rest. This is a high risk study. <Conclusion> The baseline twelve-lead EKG shows sinus rhythm without significant ST segment or T wave abnormality. EKGs obtained during and post Lexiscan infusion show sinus rhythm with no significant [place] [address] CARDIAC NUCLEAR IMAGING REPORT Name: HAL ALONSO Room: [address] IN ..#: [id number] Admission: 05/27/21 Attend Phys: Darvin Cochran, Discharge: Date of : 60 Date of Service: 05/29/21 1756 Report #: [id number] T wave changes when compared to baseline. There were no stress-induced arrhythmias. <ELECTRONICALLY SIGNED> By: Tra Reed MD, FACC 05/29/211755 55 55 Tra Reed MD, FACC /INF
[2021-05-29 20:00] VITALS: BP 87/40
[2021-05-30] VITALS (11 sets, daily range): BP systolic 84–120; BP diastolic 38–83
[2021-05-30 05:51] LABS: ABSOLUTE BASOPHILS 0.1 thou/uL (0.0-0.2); ABSOLUTE EOSINOPHILS 0.3 thou/uL (0.0-0.7); ABSOLUTE LYMPHOCYTES 2.1 thou/uL (0.8-5.3); ABSOLUTE NEUTROPHILS 7.3 thou/uL (1.6-8.1); BASOPHILS 0.5 %; EOSINOPHILS 2.6 %; HEMATOCRIT 36.5 % (37.0-47.0); HEMOGLOBIN 12.2 gm/dL (12.0-15.0); LYMPHOCYTES 19.6 %; MCH 27.4 pg (26.0-34.0); MCHC 33.5 g/dL (28.0-37.0); MCV 81.8 fL (80.0-100.0); MONOCYTES 9.6 %; MPV 8.8 fl. (7.2-11.1); NUCLEATED RBCS 0 /100WBC; PLATELET COUNT* 296 thou/uL (150-400); POLYS 67.7 %; RBC 4.46 mil/uL (4.20-5.00); RDW-CV 14.1 % (10.5-14.5); WBC 10.8 thou/uL (4.0-11.0)
[2021-05-30 06:11] LABS: ALBUMIN 2.3 g/dL (3.4-5.0); CALCIUM 9.1 mg/dL (8.5-10.1); CREATININE 0.8 mg/dL (0.6-1.3); MAGNESIUM 1.8 mg/dL (1.8-2.4); POTASSIUM 4.7 mmol/L (3.5-5.1); TOTAL BILIRUBIN 0.3 mg/dL (<0.1-1.0); TOTAL PROTEIN 6.3 g/dL (6.4-8.2)
--- NOTE | 2021-05-30 13:06 | EKG ---
[place] [address] ELECTROCARDIOGRAM REPORT Name: HAL ALONSO Room: [address] ADM IN M.R.#: [id number] Admission: 05/27/21 Attend Phys: Darvin Cochran, Discharge: Date of : 60 Date of Service: 05/29/21 0953 Report #: [id number] THIS REPORT FOR: //name// [facility] Test Date: 2021-05-29 Test Time: 09:53:21 Pat Name: HAL ALONSO Department: Room: [facility] Gender: F Cotton Feeder: LIV : 1960 Requested By: Luna Adams Order Number: [id number] MD: Derrick Kim Measurements Intervals Call Rate: 71 P: 87 OH: 132 QRS: 73 QRSD: 99 T: 55 QT: 404 QTc: 439 Interpretive Statements Sinus rhythm Low voltage, precordial leads Compared to ECG 05/27/2021 05:32:56 Low QRS voltage now present Electronically Signed On 05-30-2021 13:06:18 CDT by Derrick Kim [email or web address] <ELECTRONICALLY SIGNED> By: Derrick Kim MD, FAC 05/30/21 1306 0953 0953 Derrick Kim MD, [facility] /EPI
--- NOTE | 2021-05-30 16:37 | EKG ---
[place] [address] ELECTROCARDIOGRAM REPORT Name: GAVIN,HAL JEAN MARIE Room: [address] ADM IN M.R.#: [id number] Admission: 05/27/21 Attend Phys: Darvin Cochran, Discharge: Date of : 60 Date of Service: 05/30/21 1631 Report #: [id number] THIS REPORT FOR: //name// [facility] Test Date: 2021-05-30 Test Time: 16:31:21 Pat Name: HAL ALONSO Department: Room: [address] Gender: F Ecologist Technician: TENA : 1960 Requested By: Tra Reed Order Number: [id number] Christianne MD: Derrick Kim Measurements Intervals [place] Rate: 73 P: 79 OK: 138 QRS: 79 QRSD: 100 T: 68 QT: 386 QTc: 426 Interpretive Statements Sinus rhythm Borderline low voltage, extremity leads Compared to ECG 05/29/2021 09:53:21 No significant changes Electronically Signed On 05-30-2021 16:37:15 CDT by Derrick Kim [email or web address] <ELECTRONICALLY SIGNED> By: Derrick Kim MD, FACC 05/30/21 1637 1631 30 Derrick Kim MD, [facility] /EPI
--- NOTE | 2021-05-30 18:35 | CON ---
[address] [address] CONSULTATION Name: HAL ALONSO Room: [address] IN M.R.#: [id number] Admission: 05/27/21 Attend Phys: Darvin Cochran MD Discharge: Date of : 60 Report #: [id number] THIS REPORT FOR: cc: Maria Eugenia Shaikh Jolie Rae DO Pervez, Adeel MD ~ DATE OF CONSULTATION: 05/29/2021 REQUESTING PHYSICIAN: Consult has been requested by Dr. Jean. INDICATION FOR CONSULTATION: Pulmonary infiltrates with possible cavitation. HISTORY OF PRESENT ILLNESS: A 60-year-old female. She has an extensive history of smoking and still is actively smoking. It appears likely to me that she has previously undiagnosed COPD. The patient, however, has not been previously diagnosed. She does have a history of coronary artery disease and in the past has had myocardial infarction. She recently developed a lower extremity DVT. This appears to be a spontaneous event. The patient does not report to be sick prior to having a DVT. Initially, she was on Coumadin. Her INR was subtherapeutic and she was seen in the Emergency Room with progression of this DVT. She was switched over to Xarelto at that time. The patient now got readmitted with chest pain. The patient reports having had substernal chest pain, worse with activity. She has also had shortness of breath primarily on exertion; however, she does not report this to be any different from her baseline. She does have a cough. There is not much sputum. She does not have upper respiratory complaints. In fact, at this time is not complaining of swelling of lower extremities or calf pain. Her chest pain has now subsided. REVIEW OF SYSTEMS: For 12 points is negative except as mentioned above. The patient currently is not on supplemental oxygen and is hemodynamically stable. PAST MEDICAL HISTORY: Coronary artery disease status post myocardial infarction and stent in 2016, gastroesophageal reflux disease, hysterectomy, hyperthyroidism, tubal ligation, cholecystectomy, D and C. The patient has had a stress test today, which reported to show previous myocardial infarction with michelle-infarct ischemia. There was an echocardiogram performed about a month ago, which shows a left ventricular ejection fraction of 55-60% without elevation in right heart pressures. SOCIAL HISTORY: There is an extensive history of smoking. She is still smoking. No known history of heavy alcohol use or illegal drug use. CURRENT MEDICATIONS: List in [facility] network reviewed. HOME MEDICATIONS: List also in [facility] [place] [address] CONSULTATION Name: HAL ALONSO Room: [address] IN [facility].#: [id number] Admission: 05/27/21 Attend Phys: Darvin Cochran MD Discharge: Date of : 60 Report #: [id number] ALLERGIES: MEPERIDINE AND PROPOXYPHENE ARE MENTIONED ALLERGIES. FAMILY HISTORY: No pertinent family history. PHYSICAL EXAMINATION: GENERAL: She is alert, awake and oriented, does not appear to be in any distress. VITAL SIGNS: Has a pulse of 69 and a blood pressure of 101/52. She is saturating 96%. She is on room air. Her respiratory rate is 18. She is afebrile with a temperature of 36.3. HEENT: Head is normocephalic and atraumatic. Pupils are equal and reactive. There is no throat erythema. NECK: Does not show raised JVP, asymmetry, mass or lymph nodes. CHEST: Symmetrical expansion on inspection and palpation. On auscultation, breath sounds are bilaterally equal. There are no added sounds. HEART: Regular. There is no murmur. ABDOMEN: Soft and nontender. EXTREMITIES: Lower extremities show no edema and no calf tenderness. SKIN: Dry and intact. NEUROLOGIC: Moves all extremities bilaterally equally and spontaneously with no focal deficit identified. IMAGING: She had a CTA chest on the . It does show a small infiltrate at the left lung base. There is a small possible area of cavitation as well. There are no pulmonary emboli identified. LABORATORY DATA: The patient's lab work is in [facility] and this is reviewed. She tested negative for COVID-19. ASSESSMENT/PLAN: 1. Cavitary pulmonary infiltrate. This is present, but is fairly small in size. I will reassess with a chest x-ray tomorrow. Tentatively, the plan is to treat with broad-spectrum antibiotics. We will comment further on choice of agents tomorrow and then plan a repeat CT chest without contrast to follow up in about 6 weeks. Likely, this infiltrate is of infectious etiology; however, underlying malignancy can also lead to this picture and is not ruled out. 2. Chest pain, being evaluated by Cardiology. I understand that she is for cardiac catheterization tomorrow. 3. Deep venous thrombosis. This appears to be a spontaneous clot. She is a potential candidate for lifelong anticoagulation. I will go ahead and do a hypercoagulability profile tomorrow. This will not change current management, but may have an impact on long-term care. Anticoagulation currently on hold for cardiac catheterization. Recommend resuming anticoagulation whenever okay with [facility] [address] [place] [address] CONSULTATION Name: HAL ALONSO Room: [address]#: [id number] Admission: 05/27/21 Attend Phys: Darvin Cochran MD Discharge: Date of : 60 Report #: [id number] Cardiology. 4. Chronic obstructive pulmonary disease, on clinical grounds. Recommend smoking cessation. If the patient is interested, then I will be happy to see her as an outpatient and assess further. Thanks for this consultation. <ELECTRONICALLY SIGNED> By: Junior Remy MD 05/30/21 1835 1744 2032Arené Remy MD /nt
[2021-05-30 22:06] LABS: MYCOPLASMA PNEUMONIA IgG <100 U/mL (0-99)
[2021-05-31] VITALS (7 sets, daily range): BP systolic 85–149; BP diastolic 33–99
[2021-05-31 02:06] LABS: MYCOPLASMA PNEUMONIA IgM <770 U/mL (0-769)
[2021-05-31 05:17] LABS: HEMOGLOBIN 11.1 gm/dL (12.0-15.0); MCH 27.1 pg (26.0-34.0); MCHC 32.6 g/dL (28.0-37.0); MCV 83.2 fL (80.0-100.0); MPV 8.7 fl. (7.2-11.1); RBC 4.09 mil/uL (4.20-5.00); RDW-CV 14.3 % (10.5-14.5)
[2021-05-31 05:25] LABS: CALCIUM 8.6 mg/dL (8.5-10.1); CREATININE 0.7 mg/dL (0.6-1.3); POTASSIUM 4.8 mmol/L (3.5-5.1)
--- NOTE | 2021-05-31 11:51 | EKG ---
[place] [address] ELECTROCARDIOGRAM REPORT Name: HAL ALONSO Room: [address] ADM IN M.R.#: [id number] Admission: 05/27/21 Attend Phys: Darvin Cochran, Discharge: Date of : 60 Date of Service: 05/31/21 1004 Report #: [id number] THIS REPORT FOR: //name// [facility] Test Date: 2021-05-31 Test Time: 10:04:35 Pat Name: HAL ALONSO Department: Room: [address] Gender: F Weld Technician: LIV : 1960 Requested By: Derrick Kim Order Number: [id number] Christianne MD: Derrick Kim Measurements Intervals [place] Rate: 75 P: 78 PA: 136 QRS: 72 QRSD: 98 T: 67 QT: 395 QTc: 442 Interpretive Statements Sinus rhythm Low voltage, extremity leads Compared to ECG 05/30/2021 16:31:21 No significant changes Electronically Signed On 05-31-2021 11:51:19 CDT by Derrick Kim [email or web address] <ELECTRONICALLY SIGNED> By: Derrick Kim MD, FACC 05/31/21 1151 1004 1004 Derrick Kim MD, [facility] /EPI
--- NOTE | 2021-05-31 15:45 | CARD ---
[address] [address] CARDIAC CATH REPORT Name: HAL ALONSO Room: [address] IN [facility]#: [id number] Admission: 05/27/21 Attend Phys: Darvin Cochran MD Discharge: Date of : 60 Report #: [id number] THIS REPORT FOR: cc: Maria Eugenia Shaikh,Derrick Zuñiga MD [facility] ~ APPROVED REPORT Study performed: 05/30/2021 15:12:32 Patient Details Patient Status: In-Patient Room #: 222 The patient is a 60 year-old female Event Personnel Bee Blandon RN RN, Lucio Ugarte RTR Monitor, Monica De La Torre Scrub, Tra Reed Tow Motor Mechanic, Derrick Kim Highway Patrol Commander Procedures Performed Left Heart Cath w/or w/o Coronaries [id number] [facility] PTCA Single Vessel CIRC [id number] PCISINGLE Hemostasis w/ Mynx Indication Non-STEMI , Dyspnea, Chest pain Risk Factors Hypercholesterolemia, Coronary Artery Disease Admission/Lab Medications/Medications given during procedure Heparin Unfract., Fentanyl IV 25 mcg, Midazolam (Versed) IV 1 mg, Lidocaine Subcut 20 ml, Heparin IV 6000 units, Nitroglycerin IC 150 mcg Procedure Narrative The patient was brought electively to the Cardiac Catheterization Laboratory and was prepped and draped in a sterile manner. The right femoral was infiltrated with 2% Lidocaine subcutaneous anesthesia. IV conscious sedation was used throughout procedure with appropriate monitoring and was performed in the presence of a registered nurse who was an independent trained observer other than the physician performing the procedure. A [place] 6 FR sheath was inserted into the right femoral artery. Coronary angiography was performed using coronary diagnostic catheters. The right [place] [address] CARDIAC CATH REPORT Name: GAVINHAL Room: [address] IN ..#: [id number] Admission: 05/27/21 Attend Phys: Darvin Cochran MD Discharge: Date of : 60 Report #: [id number] and visualized with a Diagnostic JR4 6Fr catheter. The left coronary system was accessed and visualized with a Diagnostic JL4 6Fr catheter. The left ventricle was accessed and visualized with a Diagnostic St Pig[place] 6Fr catheter. Left ventricular/Aortic Valve gradient assessed via catheter pullback. Left ventriculogram was performed in BARLOW projection. Closure device was deployed with a 6 Fr Mynx. The patient tolerated the procedure well and there were no complications associated with the procedure. There was no hematoma. Intraoperative Conscious Sedation Sedation start time: 1532 Case end Time: 1615 Fentanyl 25 mcg Versed 1 mg Fluoro Time: 8.8 minutes Dose: DAP 63182 cGycm2 724.31 mGy Contrast Type and Amount: Visipaque 150 mL Coronary Angiography The patient's coronary anatomy is co- dominant. Diagnostic Cath Left Main The left main coronary artery is normal and short. Left main bifurcates into a left anterior descending and circumflex coronary artery. LAD Left anterior descending coronary artery has a widely patent stent in the midportion. The remainder of the vessel is free of significant disease. The distal LAD wraps around the apex and terminates at the distal inferior wall. Diagonal 1 The first diagonal branch has a 50% ostial narrowing. The remainder of the vessel is free of significant disease. Diagonal 2 A distal second obtuse marginal branch appears normal. Circumflex The circumflex coronary artery is mildly plaqued distally. The stent in the mid circumflex is subtotally occluded. OM1 A first obtuse marginal branches are very small in caliber and diffusely plaqued. OM2 A second obtuse marginal branch is underfilled but appears free of significant disease. OM3 A large branch third obtuse marginal branch is underfilled but appears free of significant disease. Right Coronary The right coronary artery is a small codominant vessel that is normal. R PDA A small right [place] [address] CARDIAC CATH REPORT Name: HAL ALONSO Room: [address] IN M.R.#: [id number] Admission: 05/27/21 Attend Phys: Darvin Cochran MD Discharge: Date of : 60 Report #: [id number] Left Ventriculography The left ventricle is normal in size with Mildly decreased contractility. The left ventricular ejection fraction is estimated to be 45%. Left ventricular wall motion abnormalities are present. There is akinesis of the mid to distal inferolateral wall. Hemodynamics The aortic pressure is 102/47 mmHg with a mean of 65 mmHg. The left ventricular pressure is 98/5 mmHg with a mean of mmHg. The left ventricular end diastolic pressure is 17 mmHg. There was no gradient across the aortic valve upon pullback. Pullback from the left ventricle to the aorta revealed no gradient across the aortic valve. PCI Technique Lesion Anticoagulation was achieved with Heparin. Percutaneous coronary intervention was performed on the mid circumflex artery segment. The lesion stenosis prior to intervention was 99% with BIANCA 2 flow. A 6FR XB 3.0 100CM Guide Catheter was used to engage the Left ostium. A IG: ProwaterFlex 180CM Interventional Guidewire was used to cross the lesion. BALLOON DILATION The distal circumflex beyond the stent in the mid circumflex was noted to have a very narrow lumen with slow antegrade flow. A BMW guide wire was inserted into the circumflex and was able to be advanced beyond the stent. However, the wire could not be advanced distal to the stent in to the circumflex lumen, and appearred to enter a dissection plane. A powerwater flex wire was attempted but achieved similar results. The patient remained stable throughout the procedure and further efforts at dilated the distal cicumflex beyond the stent were abandoned. Final angiography reveals 99 % stenosis with BIANCA 2 flow. Conclusion 1. In-stent restenosis in the mid circumflex coronary artery. 2. Widely patent stent in the mid left anterior descending coronary artery. 3. Mildly decreased left ventricular systolic function. 4. Mildly elevated left ventricular end-diastolic pressure. [address] [place] [address] CARDIAC CATH REPORT Name: HAL ALONSO Room: 222-P ADM IN M.R.#: [id number] Admission: 05/27/21 Attend Phys: Darvin Cochran MD Discharge: Date of : 60 Report #: [id number] Recommendations 1. Continue medical management and aggressive risk factor modification. Diagnostic Cath Approved by: Tra Reed MD Date/Time: <ELECTRONICALLY SIGNED> By: Derrick Kim MD, FACC 05/31/21 1545 1545 1545Davikecia Kim MD, FACC /INF
[2021-05-31 21:06] LABS: ANA INTERPRETATION Negative (())
[2021-06-01] VITALS (7 sets, daily range): BP systolic 88–114; BP diastolic 31–41
[2021-06-01] MEDS ORDERED: DOXYCYCLINE 10100 MG PO (07:55)
[2021-06-01] MEDS ORDERED: AUGMENTIN 875-1 EACH PO (07:55)
== END 2021-06-01 15:25 | disposition home health service (06) | DRG 250 ==
LOC: M.ERS 05:28 → M.TBA-ER 06:37 → M.2W 06:37
PROVIDERS: Internal Medicine; Internal Medicine Cardiovascular Disease; Internal Medicine Critical Care Medicine; Personal Emergency Response Attendant; ADMIT Internal Medicine; ATTEND Internal Medicine
PROC: B215YZZ Fluoroscopy of Left Heart using Other Contrast (ICD-10-PCS; principal; 2021-05-30)
PROC: B211YZZ Fluoroscopy of Multiple Coronary Arteries using Other Contrast (ICD-10-PCS; principal; 2021-05-30)
PROC: 02703ZZ Dilation of Coronary Artery, One Artery, Percutaneous Approach (ICD-10-PCS; principal; 2021-05-30)
PROC: 4A023N7 Measurement of Cardiac Sampling and Pressure, Left Heart, Percutaneous Approach (ICD-10-PCS; principal; 2021-05-30)
DX: T82.855A Stenosis of coronary artery stent, initial encounter (principal); J15.6 Pneumonia due to other Gram-negative bacteria; I25.110 Atherosclerotic heart disease of native coronary artery with unstable angina pectoris; E44.1 Mild protein-calorie malnutrition; C34.90 Malignant neoplasm of unspecified part of unspecified bronchus or lung; A15.0 Tuberculosis of lung; E11.65 Type 2 diabetes mellitus with hyperglycemia; L89.152 Pressure ulcer of sacral region, stage 2; K21.9 Gastro-esophageal reflux disease without esophagitis; E03.9 Hypothyroidism, unspecified; E11.51 Type 2 diabetes mellitus with diabetic peripheral angiopathy without gangrene; J44.9 Chronic obstructive pulmonary disease, unspecified; E11.40 Type 2 diabetes mellitus with diabetic neuropathy, unspecified; Z20.822 Contact with and (suspected) exposure to COVID-19; Z68.20 Body mass index [BMI] 20.0-20.9, adult; Z88.8 Allergy status to other drugs, medicaments and biological substances; Z79.4 Long term (current) use of insulin; Z86.718 Personal history of other venous thrombosis and embolism; Z79.01 Long term (current) use of anticoagulants; Z98.51 Tubal ligation status; Z90.49 Acquired absence of other specified parts of digestive tract; Z90.710 Acquired absence of both cervix and uterus; Z95.5 Presence of coronary angioplasty implant and graft

== ENCOUNTER → 2021-06-22 | Outpatient (CLI) | payer MEDICARE, MEDICAID ==
[~2021-06-22] MED LIST changes: +AUGMENTIN 875-1 EACH PO; +DOXYCYCLINE 10100 MG PO; +GLIPIZIDE 10 MG10 MG PO; +HUMALOG100 UNIT/1 SUBQ; +NEURONTIN100 MG PO
== END ==
LOC: M.CT 13:00
PROVIDERS: ATTEND Internal Medicine Critical Care Medicine
DX: J98.4 Other disorders of lung (principal); R91.8 Other nonspecific abnormal finding of lung field